=== PATIENT | male | born 1970 | race Caucasian/White ===

== ENCOUNTER 2016-11-22 06:02 | Day surgery (SDC) | payer BC ==
[2016-11-22] MEDS ORDERED: Versed 2 MG/2 ML Injection IV ONE (06:03)
[2016-11-22] MEDS ORDERED: DIPRIVAN 200 MG/20 ML IV ONE (06:03)
[2016-11-22] MEDS ORDERED: SUBLIMAZE 100 MCG/2 ML IV ONE (06:03)
[2016-11-22] MEDS ORDERED: Lactated Ringers 1,000 ML IV SCH (06:30)
--- NOTE | 2016-11-22 08:12 | OP ---
SURGERY DATE/TIME: 11/22/2016 0726 PREOPERATIVE DIAGNOSIS: Mother with colon cancer. POSTOPERATIVE DIAGNOSIS: Transverse colon polyp. PROCEDURE: Colonoscopy with biopsy. SURGEON: Dr. Lundberg. ANESTHESIA: MAC. Medications given by anesthesia department. HISTORY: The patient is a 46 year-old white male patient presenting now for colonoscopic evaluation due to his mother having colon cancer. The patient was appraised of the risks of the procedure including the risk of perforation, phlebitis, untoward reaction to medication, bleeding and missed lesions. The patient verbalized his understanding and desired to have the procedure performed. DESCRIPTION OF PROCEDURE: The patient was given the medications by the anesthesia department. He had continuous pulse oximetry, ECG monitoring, intermittent blood pressure monitoring and tidal CO2 monitoring during the examination. He was placed in the left lateral decubitus position. A digital rectal examination was performed and revealed normal anal sphincter tone and no masses and normal prostate. The flexible Olympus pediatric colonoscope was used to intubate the rectum. A view of the colon was developed sequentially to the cecum. Upon insertion and withdrawal there was noted a small polyp approximately 0.7 cm in size which is destroyed using passes with the cold biopsy forceps. Upon insertion and withdrawal including retroflex view in the rectum, no other mucosal lesions were encountered. The scope was removed from the patient who tolerated the procedure well and was sent back to OP recovery in good condition. The prep was noted to be fair. There were fairly large amounts of semisolid stool in sigmoid colon which precluded evaluation of small polyps in that area.
[2016-11-22 09:37] VITALS: O2SAT 97
[2016-11-22 09:40] VITALS: BP 136/86; PULSE 70
== END 2016-11-22 09:10 | disposition home or self-care (01) ==
LOC: SDC 06:02
PROVIDERS: ATTEND Family Medicine
PROC: 0DBL8ZX Excision of Transverse Colon, Via Natural or Artificial Opening Endoscopic, Diagnostic (ICD-10-PCS; principal; 2016-11-22)
DX: K63.5 Polyp of colon (principal); Z80.0 Family history of malignant neoplasm of digestive organs
CPT/HCPCS: 00810; 36415; 88305; J2250; J2704; J3010